=== PATIENT | female | born 1955 | race American Indian/Alaskan Native ===

== ENCOUNTER 2021-12-21 09:50 | Emergency (ER) | payer MEDICARE ==
--- NOTE | 2021-12-21 11:16 | XRay Report ---
XR chest routine 2V INDICATION / CLINICAL INFORMATION: Chest Pain. COMPARISON: None available. FINDINGS: SUPPORT DEVICES: None. HEART /PULMONARY VASCULATURE: No significant abnormality. LUNGS / PLEURA: No significant pulmonary or pleural abnormality. No pneumothorax. ADDITIONAL FINDINGS: No significant additional findings. IMPRESSION: 1. No acute findings. Signer Name: Fadi Eldridge MD Signed: 12/21/2021 11:11 AM Workstation Name: [id number]
[2021-12-21 11:28] LABS: Basophils # (Auto) 0.1 K/mm3 (0.0-0.1); Basophils % (Auto) 1.2 % (0.0-1.8); Eosinophils # (Auto) 0.1 K/mm3 (0.0-0.4); Eosinophils % (Auto) 1.6 % (0.0-4.3); Hematocrit 42.3 % (30.3-42.9); Hemoglobin 13.9 gm/dl (10.1-14.3); Lymphocytes # (Auto) 2.5 K/mm3 (1.2-5.4); Mean Corpuscular HGB Conc 33 % (30-34); Mean Corpuscular Volume 87 fl (79-97); Monocytes # (Auto) 0.7 K/mm3 (0.0-0.8); Monocytes % (Auto) 7.7 % (0.0-7.3); Platelet Count 292 K/mm3 (140-440); Red Blood Count 4.84 M/mm3 (3.65-5.03); Red Cell Distribution Width 14.4 % (13.2-15.2)
[2021-12-21 11:35] LABS: BUN/Creatinine Ratio 10; Blood Urea Nitrogen 8 mg/dL (7-17); Calcium 9.4 mg/dL (8.4-10.2); Hemolysis Index 3
[2021-12-21 12:13] LABS: INR 0.89 (0.87-1.13)
[2021-12-21 12:28] LABS: Alanine Aminotransferase 8 units/L (7-56)
[2021-12-21 12:35] LABS: Partial Thromboplastin Time 26.9 Sec. (24.2-36.6)
--- NOTE | 2021-12-21 15:12 | Emergency Department Report ---
ED Chest Pain HPI - General Chief Complaint: Chest Pain Stated Complaint: CHEST PAIN/HEADACHE Time Seen by Provider: 12/21/21 14:47 Source: patient Mode of arrival: Ambulatory Limitations: No Limitations - History of Present Illness Initial Comments: 66 yo F who present with chest pain that is been going on for the last 2 weeks progressively getting worse. Pt also reports that she has been noting her elevated blood pressure at between 150-160 systolic. She rated her chest pain at 5/10 in severity. No other modifying or associated factors. Severity scale (0 -10): 5 - Related Data Previous Rx's Medication Instructions Recorded Last Taken Type hydroCHLOROthiazide [HCTZ] 25 mg PO QDAY 30 Days #30 tablet NS 12/21/21 Unknown Rx Allergies Allergy/AdvReac Type Severity Reaction Status Date / Time No Known Allergies Allergy Unverified 12/21/21 10:19 Heart Score - HEART Score History: Slightly suspicious EKG: Normal Age: 45-65 Risk factors: No known risk factors Troponin: < normal limit HEART Score: 1 - EKG Read Time Time EKG Completed: 10:21 EKG Read Time: 12:28 - Critical Actions Critical Actions: 0-3 pts:0.9-1.7%risk of adverse cardiac event.Candidate for discharge ED Review of Systems ROS: Stated complaint: CHEST PAIN/HEADACHE Other details as noted in HPI Comment: All other systems reviewed and negative Cardiovascular: chest pain Neurological: headache ED Past Medical Hx - Past Medical History Previous Medical History?: No Additional medical history: ARTHRITIS - Social History Smoking Status: Current Every Day Smoker Substance Use Type: None - Medications Home Medications: Home Medications Medication Instructions Recorded Confirmed Last Taken Type hydroCHLOROthiazide [HCTZ] 25 mg PO QDAY 30 Days #30 tablet NS 12/21/21 Unknown Rx ED Physical Exam - General Limitations: No Limitations General appearance: alert, in no apparent distress - Head Head exam: Present: normal inspection - Eye Eye exam: Present: normal appearance Pupils: Present: normal accommodation - ENT ENT exam: Present: normal exam, normal orophraynx, mucous membranes moist - Neck Neck exam: Present: normal inspection, full ROM. Absent: tenderness - Respiratory Respiratory exam: Present: normal lung sounds bilaterally. Absent: respiratory distress, chest wall tenderness, accessory muscle use - Cardiovascular Cardiovascular Exam: Present: regular rate, normal rhythm, normal heart sounds - GI/Abdominal GI/Abdominal exam: Present: soft, normal bowel sounds. Absent: distended, tenderness - Extremities Exam Extremities exam: Present: normal inspection, full ROM, normal capillary refill. Absent: tenderness, pedal edema - Back Exam Back exam: Absent: tenderness - Neurological Exam Neurological exam: Present: alert, oriented X3 - Psychiatric Psychiatric exam: Present: normal affect, normal mood - Skin Skin exam: Present: warm, normal color ED Course Vital Signs 12/21/21 12/21/21 12/21/21 10:18 14:16 16:17 Temperature 98.5 F 98.4 F Pulse Rate 70 68 84 Respiratory 18 20 20 Rate Blood Pressure 171/78 Blood Pressure 162/83 171/78 171/94 [Left] O2 Sat by Pulse 99 100 98 Oximetry 12/21/21 18:14 Temperature 98.4 F Pulse Rate 78 Respiratory 20 Rate Blood Pressure Blood Pressure 142/68 [Left] O2 Sat by Pulse 98 Oximetry OSCAR score - Oscar Score Age > 65: (1) Yes Aspirin use within the Past 7 Days: (0) No 3 or more CAD Risk Factors: (0) No 2 or more Angina events in past 24 hrs: (0) No Known CAD with more than 50% Stenosis: (0) No Elevated Cardiac Markers: (0) No ST Deviation Greater than 0.5mm: (0) No OSCAR Score: 1 ED Medical Decision Making - Lab Data Result diagrams: 12/21/21 10:45 12/21/21 10:45 - EKG Data -: EKG Interpreted by Ms EKG shows normal: sinus rhythm Rate: normal - EKG Data 12/21/21 15:16 Noted with normal sinus rhythm at a rate of [address] elevation or depression in this normal ECG. - Medical Decision Making Here with chest pain/pressure-x 2 weeks -differential could be but not limited to myocardial infarction, pulmonary embolism, costochondritis, anxiety, gastritis, GERD, pancreatitis, and or pyelonephritis--in order to rule out the above-- so will go ahead and order routine cardiopulmonary work-up that include troponin, EKG, chest x-ray, BNP, CKMB, and CBC, CMP and urinalysis for any correctable infectious process or electrolyte abnormality as a cause. given aspirin and nitro x 1 pt reports feeling better Initial ECG noted negative with negative initial troponin-- considering this with elevated blood pressure which likely resulted to the chest pressure as hypertensive chest pain -- will go ahead and start HCTZ 25 mg daily with close follow up her PCP-- Critical care attestation.: If time is entered above; I have spent that time in minutes in the direct care of this critically ill patient, excluding procedure time. ED Disposition Clinical Impression: Non-cardiac chest pain Hypertension Qualifiers: Hypertension type: unspecified Qualified Code(s): I10 - Essential (primary) hypertension Disposition: 01 HOME / SELF CARE / HOMELESS Is pt being admited?: No Does the pt Need Aspirin: No Condition: Stable Instructions: Nonspecific Chest Pain, Adult, [id number], Hypertension (ED), Hypertension, Adult, [id number] Additional Instructions: It is very important that you take your antihypertensive medication and to continue to help your symptoms Cut back on your salt content Increase your daily fluid to help your hydration Call and schedule follow-up with your primary doctor in the next 3 to 5 days for progress Please do not hesitate to call or return to emergency if your symptoms worsen Prescriptions: hydroCHLOROthiazide [HCTZ] 25 mg PO QDAY 30 Days #30 tablet NS Time of Disposition: 19:09
[2021-12-21 18:16] VITALS: BP 142/68
--- NOTE | 2021-12-24 13:46 | Electrocardiograph Report ---
[facility] Test Date: 2021-12-21 Test Time: 10:21:55 Pat Name: LEMUEL ELLSWORTH Department: Room: Gender: F [employer] Operator: MAIRA : 1955 Requested By: ED DOC Order Number: [id number] Reading MD: Dina Putnam Measurements Intervals [place] Rate: 66 P: 50 WI: 180 QRS: 42 QRSD: 72 T: 64 QT: 449 QTc: 471 Interpretive Statements Sinus arrhythmia No previous ECG available for comparison Electronically Signed On 12-24-2021 13:46:26 EDT by Dina Putnam
== END 2021-12-21 19:39 | disposition home or self-care (01) ==
LOC: ED 09:50
DX: R07.9 Chest pain, unspecified (principal); I10 Essential (primary) hypertension
CPT/HCPCS: 36415; 71046; 80053; 84484; 85025; 85610; 85730; 93005; 99284